=== PATIENT | female | born 1955 | race African-American/Black ===

== ENCOUNTER 2019-04-29 08:13 | Outpatient (CLI) | payer OTHER ==
--- NOTE | 2019-04-29 09:56 | Ultrasound Report ---
ULTRASOUND ABDOMEN, LIMITED (RIGHT UPPER QUADRANT) INDICATION: B18.1) VIRAL HEPATITIS B/Z12.11 COLON CANCER SCREENING. COMPARISON: None available. FINDINGS: Pancreas: Visualized portion shows no significant abnormality. Liver: Normal. Gallbladder: Normal. Bile ducts: Normal. Common Bile Duct measures 3 mm. Free fluid: None. Additional Findings: None. IMPRESSION: 1. No sonographic abnormality of the right upper quadrant. Signer Name: Henri Hensley MD Signed: 04/29/2019 9:52 AM Workstation Name: [id number]
== END 2019-04-29 08:14 | disposition home or self-care (01) ==
LOC: US 08:13
PROVIDERS: ATTEND Internal Medicine Gastroenterology
DX: B18.1 Chronic viral hepatitis B without delta-agent (principal); Z12.11 Encounter for screening for malignant neoplasm of colon
CPT/HCPCS: 76705